=== PATIENT | female | born 1985 | race Caucasian/White ===

== ENCOUNTER 2017-01-06 06:20 | Inpatient (IN) | payer OTHER ==
--- NOTE | 2016-12-30 12:05 | HP ---
Admitting History and Physical - Primary Care Physician PCP: Kd Hartman - Admission Chief Complaint: BRCA 1 positive History of Present Illness: 31 year old premenapausal Ashkenazi female with strong family H/O breast and ovarian cancer. BRCA1 positive. She underwent a reduction mammoplasty 02/2016 in preparation for nipple sparing mastectomies. mammogram Birad 1 09/2016 and breast MRI 10/2016 birad 2. History Source: Patient Limitations to Obtaining History: No Limitations - Past Medical History BUSINESS INTELLIGENCE MANAGER: Yes: Other Gastrointestinal: Yes: Esophageal Varices Rheumatology: Yes: Other (Lyme disease joint pains and on antibiotics since 2014 ) ENT: Yes: Other (seasonal allergies) Endocrine: Yes: Hypothyroidism - Smoking History Smoking history: Never smoked Have you smoked in the past 12 months: No - Alcohol/Substance Use Hx Alcohol Use: No Home Medications - Allergies Allergies/Adverse Reactions: Allergies Allergy/AdvReac Type Severity Reaction Status Date / Time No Known Allergies Allergy Verified 12/30/16 12:04 - Home Medications Home Medications (free text): montelukast,fluconazole,tetracycline,levothyroxine Family Disease History - Family Disease History Family Disease History: CA: Grandparent (mat GM ovarian ca 50), Father ( prostate ca 57), Mother (29 and 40 BRCA positive) Physical Examination Constitutional: Yes: Well Nourished, No Distress Breast(s): Yes: Other (Bilateral reduction mammoplasty incisions healed well with good cosmetic results/ no palpable masses or adenopathy) Problem List - Problems (1) Genetic predisposition to breast cancer Code(s): Z15.01 - GENETIC SUSCEPTIBILITY TO MALIGNANT NEOPLASM OF BREAST Assessment/Plan Bilateral total mastectomies nipple sparing with implant alloderm reconstruction
[2016-12-30 16:32] VITALS: BMI 27.4
[2017-01-06] MEDS ORDERED: LIDOCAINE 1%-EPI 1:100,000 30 ML MDV IJ ONE (06:58)
[2017-01-06] MEDS ORDERED: ceFAZolin SODIUM 1 GM VIAL ONE ×3 (06:58→12:20)
[2017-01-06] MEDS ORDERED: GENTAMICIN SO4 80 MG/2 ML VIAL ONE (06:58)
[2017-01-06] MEDS ORDERED: BUPIVACAINE HCL/PF 2.5 MG/ML - 30 ML VIAL IJ ONE (07:28)
[2017-01-06] MEDS ORDERED: PROPOFOL 20 ML ONE ×2 (07:29)
[2017-01-06] MEDS ORDERED: MIDAZOLAM HCL 2 MG/2 ML SINGLE DOSE VIAL ONE ×2 (07:29→07:47)
[2017-01-06] MEDS ORDERED: SUCCINYLCHOLINE CHLORIDE 200 MG/10 ML VIAL ONE (07:29)
[2017-01-06] MEDS ORDERED: DEXAMETHASONE SOD PHOSPHATE/PF 10 MG/ML SDV ONE (07:31)
[2017-01-06] MEDS ORDERED: HYDROmorphone HCL/PF 1 MG/ML VIAL (FOR PYXIS CHARGING ONLY) ONE ×4 (08:22→12:18)
[2017-01-06] MEDS ORDERED: DEXAMETHASONE SOD PHOSPHATE 4 MG/1 ML VIAL ONE ×3 (08:24→12:18)
[2017-01-06] MEDS ORDERED: ONDANSETRON 4 MG/2 ML VIAL ONE ×2 (08:24→12:18)
[2017-01-06] MEDS ORDERED: PHENYLEPHRINE HCL 10 MG/1 ML SINGLE DOSE VIAL ONE ×2 (08:39)
[2017-01-06] MEDS ORDERED: ROCURONIUM BROMIDE 50 MG/5 ML VIAL ONE (09:02)
[2017-01-06] MEDS ORDERED: SCOPOLAMINE HYDROBROMIDE 1 PATCH PATCH.TD72 ONE (09:06)
[2017-01-06] MEDS ORDERED: ACETAMINOPHEN 325 MG TABLET (FP) PO PRN (09:47)
[2017-01-06] MEDS ORDERED: DESFLURANE GAS 240 ML BOTTLE IH ONE (09:56)
[2017-01-06] MEDS ORDERED: BACITRACIN 50,000 UNITS VIAL NR ONE (10:15)
[2017-01-06] MEDS ORDERED: ceFAZolin SODIUM 1 GM VIAL IVPB ONE (10:16)
[2017-01-06] MEDS ORDERED: GENTAMICIN SO4 80 MG/2 ML VIAL IVPB ONE (10:17)
[2017-01-06] MEDS ORDERED: ZOLPIDEM TARTRATE 5 MG TABLET PO PRN (10:37)
[2017-01-06] MEDS ORDERED: NEOSTIGMINE METHYLSULFATE 0.5 MG/ML - 10 ML MDV ONE (10:50)
[2017-01-06] MEDS ORDERED: GLYCOPYRROLATE 0.2 MG/1 ML VIAL ONE (10:50)
[2017-01-06] MEDS ORDERED: HYDROmorphone *PCA* 10MG/50ML DISP.SYRIN PCA ONE (11:04)
[2017-01-06] MEDS ORDERED: LACTATED RINGERS SOLUTION 1,000 ML IV SCH (11:15)
[2017-01-06] MEDS ORDERED: HYDROmorphone *PCA* 10MG/50ML DISP.SYRIN PCA SCH ×2 (11:15→11:32)
[2017-01-06] MEDS ORDERED: LIDOCAINE HCL 2% 100 MG/5 ML DISP.SYRIN ONE (12:10)
[2017-01-06] MEDS: CEFAZOLIN 1 GM/D5W 50 ML IVPB SCH ×2 (15:23→20:32)
[2017-01-06] MEDS: MONTELUKAST NA 10 MG TABLET PO SCH (21:32)
[2017-01-06] MEDS: ONDANSETRON 4 MG/2 ML VIAL IVPB PRN (23:00)
[2017-01-07] MEDS: CEFAZOLIN 1 GM/D5W 50 ML IVPB SCH ×4 (03:16→21:23)
[2017-01-07] MEDS: ONDANSETRON 4 MG/2 ML VIAL IVPB PRN (04:05)
[2017-01-07] MEDS: LEVOTHYROXINE NA 88 MCG TABLET (FP) PO SCH (06:09)
[2017-01-07 08:59] LABS: MCH 31.2 pg (25.7-33.7); MCHC 33.5 g/dl (32.0-36.0); MEAN CELL VOLUME 93.1 fl (80-96); MEAN PLT VOLUME 9.6 fl (7.5-11.1); PLATELET COUNT 244 K/MM3 (134-434); RDW 11.6 % (11.6-15.6); WHITE BLOOD COUNT 12.8 K/mm3 (4.0-10.0)
--- NOTE | 2017-01-07 09:34 | PN ---
Progress Note, Physician Chief Complaint: BRCA positive S/P bilateral total nipple sparing mastectomies with implant and alloderm reconstruction History of Present Illness: Patient is nauseous and using zofran not using CRYSTAL FLAT GRINDER due to nausea. Will change to percocet once she is able to eat - Current Medication List Current Medications: Active Medications Acetaminophen (Tylenol -) 650 mg PO Q4H PRN PRN Reason: FEVER Hydromorphone HCl (Dilaudid Ct Tech -) 10 mg CRYSTAL FLAT GRINDER CRYSTAL FLAT GRINDER LUCIO PRN Reason: Protocol Stop: 01/13/17 11:05 Cefazolin Sodium (Ancef 1 Gm Premixed Ivpb -) 50 mls @ 100 mls/hr IVPB Q6H-IV [facility] Stop: 01/13/17 14:59 Last Admin: 01/07/17 03:16 Dose: 100 mls/hr Dextrose/Sodium Chloride (D5-1/2ns -) 1,000 mls @ 100 mls/hr IV ASDIR [facility] Lactated Ringer's (Lactated Ringers Solution) 1,000 mls @ 125 mls/hr IV ASDIR [facility] Levothyroxine Sodium (Synthroid -) 88 mcg PO DAILY@0700 [facility] Last Admin: 01/07/17 06:09 Dose: 88 mcg Loratadine (Claritin -) 10 mg PO DAILY [facility] Montelukast Sodium (Singulair -) 10 mg PO HS [facility] Last Admin: 01/06/17 21:32 Dose: 10 mg Ondansetron HCl (Zofran Injection) 4 mg IVPB Q6H PRN PRN Reason: NAUSEA AND/OR VOMITING Last Admin: 01/07/17 04:05 Dose: 4 mg Zolpidem Tartrate (Ambien -) 5 mg PO HS PRN PRN Reason: Insomnia - Objective Vital Signs: Vital Signs Temperature 98.4 F 01/07/17 06:05 Pulse Rate 81 01/07/17 06:05 Respiratory Rate 18 01/07/17 08:21 Blood Pressure 103/46 01/07/17 06:05 O2 Sat by Pulse Oximetry (%) 99 01/07/17 08:21 Constitutional: Yes: Well Nourished, No Distress Breast(s): Yes: Other (Bilateral echymosis mild flaps viable incision intact and tegaderm in place FIDEL drains functioning) Labs: CBC, BMP 01/07/17 07:55 Problem List - Problems (1) Genetic predisposition to breast cancer Code(s): Z15.01 - GENETIC SUSCEPTIBILITY TO MALIGNANT NEOPLASM OF BREAST Assessment/Plan continue IV antibiotics DC CRYSTAL FLAT GRINDER and start percocet once she is tolerating po better spirometry plan for discharge tomorrow
[2017-01-07] MEDS: LORATADINE 10 MG TABLET PO SCH (09:51)
--- NOTE | 2017-01-07 10:16 | PN ---
Progress Note, Physician Chief Complaint: POD # s/p bilateral mastectomies with direct implant placement with alloderm History of Present Illness: POD # s/p bilateral mastectomies with direct implant placement with alloderm - Current Medication List Current Medications: Active Medications Acetaminophen (Tylenol -) 650 mg PO Q4H PRN PRN Reason: FEVER Hydromorphone HCl (Dilaudid Speech Assistant -) 10 mg SUPERVISOR CONTINGENTS SUPERVISOR CONTINGENTS LUCIO PRN Reason: Protocol Stop: 01/13/17 11:05 Cefazolin Sodium (Ancef 1 Gm Premixed Ivpb -) 50 mls @ 100 mls/hr IVPB Q6H-IV [facility] Stop: 01/13/17 14:59 Last Admin: 01/07/17 09:51 Dose: 100 mls/hr Dextrose/Sodium Chloride (D5-1/2ns -) 1,000 mls @ 100 mls/hr IV ASDIR [facility] Lactated Ringer's (Lactated Ringers Solution) 1,000 mls @ 125 mls/hr IV ASDIR [facility] Levothyroxine Sodium (Synthroid -) 88 mcg PO DAILY@0700 [facility] Last Admin: 01/07/17 06:09 Dose: 88 mcg Loratadine (Claritin -) 10 mg PO DAILY [facility] Last Admin: 01/07/17 09:51 Dose: 10 mg Montelukast Sodium (Singulair -) 10 mg PO HS [facility] Last Admin: 01/06/17 21:32 Dose: 10 mg Ondansetron HCl (Zofran Injection) 4 mg IVPB Q6H PRN PRN Reason: NAUSEA AND/OR VOMITING Last Admin: 01/07/17 04:05 Dose: 4 mg Zolpidem Tartrate (Ambien -) 5 mg PO HS PRN PRN Reason: Insomnia - Objective Vital Signs: Vital Signs Temperature 98.6 F 01/07/17 09:46 Pulse Rate 67 01/07/17 09:46 Respiratory Rate 18 01/07/17 09:46 Blood Pressure 127/82 01/07/17 09:46 O2 Sat by Pulse Oximetry (%) 99 01/07/17 08:21 Constitutional: Yes: Well Nourished Eyes: Yes: WNL HENT: Yes: WNL Neck: Yes: WNL Respiratory: Yes: WNL Gastrointestinal: Yes: WNL ...Rectal Exam: Yes: Deferred Breast(s): Yes: Other (Bilateral breasts with appropriate swelling and tegaderm dressings in place. Nipples viable. No drainage.) Wound/Incision: Yes: Clean/Dry Additional Findings/Remarks: Cont with pain management cont with beir hugger cont with abx cont with anticoagulation possible d/c tomorrow Labs: CBC, BMP 01/07/17 07:55
--- NOTE | 2017-01-07 11:54 | OP ---
DATE OF OPERATION: 01/06/2017 PREOPERATIVE DIAGNOSIS: High risk for breast cancer BRCA1 positive. POSTOPERATIVE DIAGNOSIS: High risk for breast cancer BRCA1 positive. PROCEDURE: Bilateral total nipple-sparing mastectomy, pseudo inframammary approach, with bilateral direct implant reconstruction with AlloDerm. ANESTHESIA: General endotracheal anesthesia. PRIMARY SURGEON: Aaliyah Drew MD PUBLIC HEALTH INTERNSHIP: SHANIQUA Champagne PRIMARY SURGEON FOR THE BILATERAL DIRECT IMPLANT RECONSTRUCTION: Aaliyah Lindo MD HIS PUBLIC HEALTH INTERNSHIP: SHANIQUA Ludwig COMPLICATIONS: There were no complications. INDICATIONS: Briefly, the patient is a 31-year-old premenopausal white female of [place] descent and Ashkenazi Scientologist heritage. She has a strong family history of breast cancer with a mother who had breast cancer at age 29 and then again at age 40, who tested BRCA1 positive. Her maternal grandmother from ovarian cancer at age 50. Her father had prostate cancer at age 57. The patient tested BRCA1 positive in 2004 and had been getting close surveillance. She decided to undergo bilateral breast reduction mastectomies and had fairly large breasts and first underwent a reduction mastopexy in February of 2016. She had a negative mammography and ultrasound in September and October of 2016, and negative MRI in October of 2016. She was seen in consultation regarding breast reduction, prophylactic mastectomy and understood that we do retroareolar biopsies underneath the nipple. If these show cancer, we would remove the nipples. She understood the lack of any evidence shown for doing prophylactic sentinel lymph node biopsy. She understood all risks and complications of the procedure including the risks of skin flap necrosis, nipple loss, hematoma, infection. The patient was brought in for the surgery on January 06, 2017. In the holding area, site verification was made and informed consent was obtained. She was marked preoperatively by the plastic surgeon. She did sign consent for the Nipple-Sparing Registry. DESCRIPTION OF PROCEDURE: She underwent the pectoral block bilaterally for postoperative pain control and then was brought into the operating room. In the operating room, Venodynes were placed on the lower extremities prior to induction. She received 2 g of Ancef prior to incision. She underwent general endotracheal anesthesia. Both breasts were sterilely prepped and draped in the usual fashion. Bilateral inframammary incisions were marked using the previous reduction pattern incision on the inframammary fold. The left mastectomy was first performed. An incision was made using the previous inframammary incision from her mastopexy, and skin flaps were raised using the PEAK radiofrequency device. The breast was retracted inferiorly using [place] clamps, and the flap was raised superiorly to the level of the clavicle, medially to the level of the sternum, laterally to the level of the latissimus, and inferiorly below the level of the inframammary fold. The breast was taken down off the pectoralis major muscle from inferomedial to superolateral, completely removed intact. It was oriented with the long-lateral short-superior suture, and weighed to allow for appropriate cosmetic result. Skin flaps were trimmed for good cosmetic result, and hemostasis was achieved. A retroareolar biopsy was taken underneath the left nipple areolar complex and sent for frozen section. It came back negative, so, the left nipple was spared. The wound was copiously irrigated with warm sterile saline. At this point, the right breast was approached and again, the previous inframammary incision was used, and the skin flap was raised using the PEAK radiofrequency device superiorly to the level of the clavicle, medially to the level of the sternum, laterally to the level of the latissimus, and inferiorly below the level of the inframammary fold. Again, the breast was taken down off the pectoralis major muscle from inferomedial to superolateral, completely removed intact, and it was oriented with the long-lateral short-superior suture, and weighed to allow for appropriate cosmetic result. A retroareolar biopsy was taken underneath the right nipple areolar complex and sent for frozen section. It came back negative, so, the right nipple was spared. Both breasts were sent to Pathology in formalin with marking sutures, and the right mastectomy wound was copiously irrigated with warm sterile saline, and hemostasis was achieved. Again the retroareolar biopsy on the right was negative, as well. At this point, Dr. Lindo became the primary surgeon and performed bilateral direct implant reconstructions using AlloDerm sutured into the inferolateral aspects of both pectoralis major muscles. Implants were placed subpectorally. Two Barrett drains will be placed around each implant and brought through separate stab incisions on the lateral skin flaps. All wounds will be closed by plastic surgery. Drains will be placed under FIDEL sterile bulb suction. Sterile dressing will be applied, and she will be extubated and brought to the post-anesthesia care until. Then, she will be admitted postoperatively for pain management and wound management. She will be placed on a CERTIFIED OPHTHALMIC SURGICAL ASSISTANT for postoperative pain control. All sponge and needle counts were correct at this point in the case. ESTIMATED BLOOD LOSS: About 100 mL. CONDITION: She was hemodynamically stable throughout. NOTE: We did use the SPY Skin Perfusion Device at the end of the mastectomy which showed good perfusion of both flaps prior in the nipple areolar complexes. AALIYAH DREW M.D. [id number]
--- NOTE | 2017-01-07 14:44 | PN ---
Progress Note (short form) - Note Progress Note: ANESTHESIA POST-OP CHECK 31F s/p bilateral mastectomy under general anesthesia POD #1. No acute complaints. Tolerating PO, ambulating, voiding, pain 4/10 and tolerable. Denies N/V. Vital Signs Temperature 98.6 F 01/07/17 09:46 Pulse Rate 67 01/07/17 09:46 Respiratory Rate 18 01/07/17 09:46 Blood Pressure 127/82 01/07/17 09:46 O2 Sat by Pulse Oximetry (%) 99 01/07/17 08:21 Active Medications Acetaminophen (Tylenol -) 650 mg PO Q4H PRN PRN Reason: FEVER Hydromorphone HCl (Dilaudid Equity Trader -) 10 mg PATIENT TRANSITION SPECIALIST PATIENT TRANSITION SPECIALIST LUCIO PRN Reason: Protocol Stop: 01/13/17 11:05 Cefazolin Sodium (Ancef 1 Gm Premixed Ivpb -) 50 mls @ 100 mls/hr IVPB Q6H-IV [facility] Stop: 01/13/17 14:59 Last Admin: 01/07/17 09:51 Dose: 100 mls/hr Dextrose/Sodium Chloride (D5-1/2ns -) 1,000 mls @ 100 mls/hr IV ASDIR LUCIO Lactated Ringer's (Lactated Ringers Solution) 1,000 mls @ 125 mls/hr IV ASDIR LUCIO Levothyroxine Sodium (Synthroid -) 88 mcg PO DAILY@0700 [facility] Last Admin: 01/07/17 06:09 Dose: 88 mcg Loratadine (Claritin -) 10 mg PO DAILY [facility] Last Admin: 01/07/17 09:51 Dose: 10 mg Montelukast Sodium (Singulair -) 10 mg PO HS [facility] Last Admin: 01/06/17 21:32 Dose: 10 mg Ondansetron HCl (Zofran Injection) 4 mg IVPB Q6H PRN PRN Reason: NAUSEA AND/OR VOMITING Last Admin: 01/07/17 04:05 Dose: 4 mg Zolpidem Tartrate (Ambien -) 5 mg PO HS PRN PRN Reason: Insomnia Gen: awake alert No apparent anesthesia complications. Pain well controlled, discontinue PATIENT TRANSITION SPECIALIST, start oral analgesics. Continue managment as per primary team.
[2017-01-07] MEDS: DEXTROSE 5%-0.45% SALINE 1,000 ML IV SCH (15:33)
[2017-01-07] MEDS: OXYCODONE/APAP 5/325MG COMBO TABLET PO PRN (18:12)
[2017-01-07] MEDS: MONTELUKAST NA 10 MG TABLET PO SCH (21:23)
[2017-01-07] MEDS ORDERED: diphenhydrAMINE HCL 25 MG CAPSULE (FP) PO PRN (22:48)
[2017-01-08] MEDS: CEFAZOLIN 1 GM/D5W 50 ML IVPB SCH ×2 (03:06→09:37)
[2017-01-08] MEDS: OXYCODONE/APAP 5/325MG COMBO TABLET PO PRN (03:07)
[2017-01-08 03:20] VITALS: BP 108/56; PULSE 82; TEMP 98.3
--- NOTE | 2017-01-08 06:11 | OP ---
DATE OF OPERATION: DATE OF DICTATION: 01/07/2017 PREOPERATIVE DIAGNOSES: 1. Bilateral acquired chest wall deformity status post bilateral mastectomy (611.89). 2. Personal history of genetic carcinoma. POSTOPERATIVE DIAGNOSES: 1. Bilateral acquired chest wall deformity status post bilateral mastectomy (611.89). 2. Personal history of genetic carcinoma. PROCEDURE: 1. Right immediate breast reconstruction utilizing immediate insertion of silicone breast implant and AlloDerm reconstruction. 2. Left immediate breast reconstruction utilizing immediate insertion of silicone breast implant and AlloDerm reconstruction. 3. Intravenous injection of isocyanide green dye and intraoperative diagnostic evaluation of noncoronary intraoperative fluorescein vascular angiography x 2. SURGEON: Dr. Miguelina Lindo ANESTHESIA: General. OPERATIVE PROCEDURE IN DETAIL: The patient was brought to the operating room by Dr. Aaliyah Hartman. She underwent bilateral breast reconstruction in the usual fashion. After induction of general anesthesia in the supine position, both arms were extended and padded. Venodyne boots were placed. The entire chest wall was painted with ChloraPrep solution over its entire extent, and sterile drapes were placed in the usual fashion. The markings, which had been made in the standing position preoperatively, were reoutlined with the patient's knowledge. Timeout procedure was performed. Attention was turned by Dr. Hartman to the mastectomies. Bilateral inframammary incisions were made and Dr. Hartman performed mastectomies. This will be dictated under separate cover. Upon completion of the mastectomies, the wounds were copiously irrigated and attention was turned to the right breast. A subpectoral dissection was begun on the right breast, superiorly from the second rib, medially to the sternal fibers, and down to the inframammary fold, elevating the pectoralis major muscle from its insertion. At this point, an 8.0 x 16.0 sheet of AlloDerm Contour perforated medium was brought into the field and sutured superiorly along the pectoralis major muscle after rehydration. This was carried along the lateral mammary fold and down the side of the breast reconstruction. At this point, a Natrelle Inspira cohesive breast implant style SCF 485 mL was chosen. The left breast tissue removed was 370 g, and the right breast approximately 370 g. This implant was placed and then sutured with 3-0 Vicryl suture continued along the inframammary fold, completely covering the implant itself. The exact same procedure was carried out symmetrically on the opposite breast, also placing a Natrelle Inspira cohesive breast implant style SCF 485 mL implant in the same subpectoral pocket. Good symmetry was seen in the sitting position. After the implants were in place, the patient was injected with 10 mL of isocyanide green dye and the Spy imaging system was brought into the field. The skin flowed to the right and left breasts and the nipple areolar complex, and the entire skin flaps were evaluated and seen to be viable with good blood flow. Two Fercho-Nelson drains were brought out through separate stab wounds laterally. The Smart Infuser pump catheter was inserted medially and into the subpectoral position. Both wounds were closed symmetrically using 3-0 PDS suture on the deep tissue, 3-0 in a deep dermal fashion, and 4-0 in a subcuticular fashion. Both wounds were dressed sterilely with Mastisol and Steri-Strips with a surgical bra and a compression strap. The patient tolerated the procedure well. She was awakened, extubated and transferred to the recovery room in satisfactory condition. The preschool assistant principal was present during the entire portion of the operation and closure. AALIYAH LINDO M.D. [id number]
[2017-01-08] MEDS: LEVOTHYROXINE NA 88 MCG TABLET (FP) PO SCH (07:29)
[2017-01-08] MEDS: DEXTROSE 5%-0.45% SALINE 1,000 ML IV SCH (09:37)
[2017-01-08] MEDS: LORATADINE 10 MG TABLET PO SCH (09:37)
--- NOTE | 2017-01-08 10:43 | PN ---
Progress Note, Physician Chief Complaint: High risk for breast cancer BRCA1+ History of Present Illness: The patient is a 31 y.o premenopausal white female with a strong family history of breast and ovarian cancer who tested BRCA1+. She decided on undergoing a prophylactic nipple sparing mastectomy. She had a reduction mastopexy in 2015 and underwent the prophylactic NSM on 01/06/17. She was admitted postoperatively for pain and wound management. - Current Medication List Current Medications: Active Medications Acetaminophen (Tylenol -) 650 mg PO Q4H PRN PRN Reason: FEVER Diphenhydramine HCl (Benadryl -) 25 mg PO Q6H PRN Last Admin: 01/08/17 03:06 Dose: 25 mg Cefazolin Sodium (Ancef 1 Gm Premixed Ivpb -) 50 mls @ 100 mls/hr IVPB Q6H-IV [facility] Stop: 01/13/17 14:59 Last Admin: 01/08/17 09:37 Dose: 100 mls/hr Dextrose/Sodium Chloride (D5-1/2ns -) 1,000 mls @ 100 mls/hr IV ASDIR [facility] Last Admin: 01/08/17 09:37 Dose: Not Given Lactated Ringer's (Lactated Ringers Solution) 1,000 mls @ 125 mls/hr IV ASDIR [facility] Last Admin: 01/07/17 15:33 Dose: Not Given Levothyroxine Sodium (Synthroid -) 88 mcg PO DAILY@0700 [facility] Last Admin: 01/08/17 07:29 Dose: 88 mcg Loratadine (Claritin -) 10 mg PO DAILY [facility] Last Admin: 01/08/17 09:37 Dose: 10 mg Montelukast Sodium (Singulair -) 10 mg PO HS [facility] Last Admin: 01/07/17 21:23 Dose: 10 mg Ondansetron HCl (Zofran Injection) 4 mg IVPB Q6H PRN PRN Reason: NAUSEA AND/OR VOMITING Last Admin: 01/07/17 04:05 Dose: 4 mg Oxycodone/Acetaminophen (Percocet 5/325 -) 2 combo PO Q6H PRN PRN Reason: PAIN LEVEL 6-10 Last Admin: 01/08/17 03:07 Dose: 2 combo Zolpidem Tartrate (Ambien -) 5 mg PO HS PRN PRN Reason: Insomnia - Objective Vital Signs: Vital Signs Temperature 98.3 F 01/08/17 03:00 Pulse Rate 82 01/08/17 03:00 Respiratory Rate 20 01/08/17 03:00 Blood Pressure 108/56 01/08/17 03:00 O2 Sat by Pulse Oximetry (%) 98 01/07/17 20:33 Constitutional: Yes: Well Nourished, No Distress, Calm Eyes: Yes: WNL HENT: Yes: WNL Neck: Yes: WNL Cardiovascular: Yes: Regular Rate and Rhythm Respiratory: Yes: Regular, CTA Bilaterally Gastrointestinal: Yes: Normal Bowel Sounds, Soft ...Rectal Exam: Yes: Deferred Genitourinary: Yes: WNL Breast(s): Yes: Other (Wounds clean dry and intact. Skin flaps warma and viable. Drains functioning well) Musculoskeletal: Yes: WNL Extremities: Yes: WNL Integumentary: Yes: WNL Wound/Incision: Yes: Clean/Dry, Well Approximated Neurological: Yes: Alert, Oriented ...Motor Strength: WNL Psychiatric: Yes: WNL Labs: CBC, BMP 01/07/17 07:55 Problem List - Problems (1) Genetic predisposition to breast cancer Assessment/Plan: The patient is doing well POD#2 from her bilateral prophylactic nipple sparing mastectomies. She has good pain control but is pruritic on percocet. Skin flaps are warm and viable. Dressing changed at bedside today. She is stable for discharge. Will send home on vicodin for pain and cefadroxil antibiotics. Follow up with Drs. Hartman and Guicho in 1 week. Record drain outputs daily. No heavy lifting or exercise. No bath or shower until drains removed. Code(s): Z15.01 - GENETIC SUSCEPTIBILITY TO MALIGNANT NEOPLASM OF BREAST
--- NOTE | 2017-01-08 11:02 | DS ---
Physical Examination Vital Signs: Vital Signs Temperature 98.3 F 01/08/17 03:00 Pulse Rate 82 01/08/17 03:00 Respiratory Rate 20 01/08/17 03:00 Blood Pressure 108/56 01/08/17 03:00 O2 Sat by Pulse Oximetry (%) 98 01/07/17 20:33 Constitutional: Yes: Well Nourished, No Distress, Calm Eyes: Yes: WNL HENT: Yes: Hoarseness Neck: Yes: WNL Cardiovascular: Yes: Regular Rate and Rhythm Respiratory: Yes: Regular, CTA Bilaterally Gastrointestinal: Yes: Normal Bowel Sounds, Soft ...Rectal Exam: Yes: Deferred Renal/: Yes: WNL Breast(s): Yes: Other (Wounds clean, dry, and intact. Skin flaps warm and viable. 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 She did well postoperatively and her skin flaps were warm and viable and wounds clean and dry. 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 Condition: Good - Instructions Diet, Activity, Other Instructions: Post Operative Instructions - [facility] We hope your recovery will be uneventful. For those of you who have been given general anesthesia, there is a possibility you might have some lightheadedness and possibly nausea. It is important that each patient, especially those who have had general anesthesia, follow these instructions, please: 1. Do NOT operate a motor vehicle for 24 hours. 2. Do NOT drink any alcoholic beverages for 24 hours. 3. Do NOT take any sedatives, narcotics, or tranquilizers for 24 hours unless specifically ordered by your surgeon. 4. Do NOT undertake any strenuous exercise or outside activity for 24 hours unless specifically permitted by your surgeon. 5. Eat light foods that are easy to digest. If you have any problems with nausea and vomiting, lie down and rest. If it continues, call your surgeon. 6. Call your surgeon AT ONCE if you have problems with: a. Bleeding b. Urinating c. Excessive pain or drainage d. Numbness If any problems occur, call your physician first. If you cannot reach him/her, call the Ambulatory Surgery Unit at [phone], or the Emergency Room at [phone]. Follow up with Drs. Hartman / Bk in 7 days. Medication: Vicodin E-S OR Percocet 1-2 tablets every 4-6 hrs as needed for 5-7 days. Wound Care: Keep wound dry and clean for 48 hours. You may remove the dressing after 48 hours and may shower. Keep steri-strips in place until follow-up appointment No heavy lifting or strenuous activities. BREAST SURGERY INSTRUCTIONS Jose Hartman M.D., YONI Hartman M.D., FACS Johnny Bourgeois M.D., FACS 1. Please call the office at to make a follow up appointment with your surgeon. This number can be also used for any urgent issues you may have. 2. Call us immediately if any of the following occur: *Bleeding from the incision or drain site (a small amount is normal) *Fever or chills *Redness and worsening tenderness around the surgical site *Drainage of pus or fluid from the incision or drain site 3. You may change the surgical dressing two (2) days after your surgery, and may shower then. If you have drains, you may shower after they have been removed, until then take a sponge bath. 4. It is normal for there to be some bruising and tenderness around the surgical site, and the breast may also be firm in this area. 5. Please wear a comfortable bra (sports or surgical bra) all day and all night until your first follow-up visit with your surgeon. 6. The pain medicine you have been prescribed may make you constipated; make sure you drink plenty of water. You may use an over the counter laxative if needed. 7. You may resume your normal diet after surgery, although you may want to avoid rich foods for the first twenty-four (24) hours after surgery. Alcoholic drinks should be avoided while taking the prescribed pain medicine. 8. You may resume normal activities as long as there is no discomfort, but do not do upper body exercises until after your follow-up appointment. Do not lift anything heavier than a large phone book. You may resume driving once you have stopped taking the prescribed pain medicine and feel comfortable doing arm movements. WEAR BRA/ NO SHOWER/ EMPTY AND RECORD FIDEL OUTPUT TWICE DAILTY/ CHANGE DRESSING WHEN SOILED Referrals: Kd Hartman MD [Staff Physician] - Remigio Lindo MD [Staff Physician] - Disposition: HOME - Home Medications Comprehensive Discharge Medication List: Ambulatory Orders Cholecalciferol (Vitamin D3) [Vitamin D3 -] 1,000 unit PO DAILY 12/30/16 Levothyroxine [Synthroid -] 88 mcg PO DAILY 12/30/16 Loratadine [Claritin] 10 mg PO DAILY 12/30/16 Montelukast Na [Singulair -] 10 mg PO HS 12/30/16 Multivitamins [Multivit ([facility] Formulary)] 1 tab PO DAILY 12/30/16 Cefadroxil 500 mg PO BID #20 capsule 01/07/17 Oxycodone HCl/Acetaminophen [Percocet 5-325 mg Tablet] 1 - 2 tab PO Q6H PRN #30 tab MDD 6 01/07/17 Hydrocodone/Acetaminophen [Vicodin 5-300 mg Tablet] 1 each PO PRN PRN 7 Days MDD 8 01/08/17
--- NOTE | 2017-01-11 11:26 | PATH ---
Surgical Pathology Report Patient Name: GREGORY FAM Med. Rec. #: [id number] /Age/Gender: 1985 (Age: 31) / F Account: [id number] Location: [facility] Taken: 01/06/2017 Received: 01/06/2017 Reported: 01/11/2017 Physicians: Kd Hartman M.D. Specimen(s) Received A: RIGHT BREAST RETROAREOLAR BX. FS#1 B: LEFT BREAST RETROAREOLAR BIOPSY. FS#2 C: LEFT BREAST MASTECTOMY D: RIGHT BREAST MASTECTOMY Clinical History Bilateral prophylactic mastectomies BRCA + Intraoperative Consult Diagnosis A. Right retroareolar biopsy, frozen section: Negative for malignancy. B. Left retroareolar biopsy, frozen section: Negative for malignancy, Nona Sarah M.D. 01/06/17 Final Diagnosis A. RETROAREOLA, RIGHT BREAST, BIOPSY (FS): BENIGN BREAST TISSUE; NEGATIVE FOR MALIGNANCY. B. RETROAREOLA, LEFT BREAST, BIOPSY (FS): BENIGN BREAST TISSUE; NEGATIVE FOR MALIGNANCY. C. BREAST, LEFT, NIPPLE-SPARING MASTECTOMY: BENIGN BREAST TISSUE. D. BREAST, RIGHT, NIPPLE-SPARING MASTECTOMY: BENIGN BREAST TISSUE. FEW SUTURE GRANULOMAS ARE IDENTIFIED. Electronically Signed Patricia Sarah M.D. Gross Description A. Received fresh for frozen section, labeled "right breast retroareolar biopsy," is a 0.5 x 0.4 x 0.2 cm portion of red and yellow soft tissue. A frozen section is performed on the specimen. The frozen section residue is entirely submitted in one cassette. B. Received fresh for frozen section, labeled "left breast retroareolar biopsy," is a 1.2 x 0.8 x 0.2 cm portion of red and yellow soft tissue. A frozen section is performed on the specimen. The frozen section residue is entirely submitted in one cassette. C. Received in formalin, labeled "left breast mastectomy," is a 384 gram, 15.5 x 15.0 x 3.7 cm. left mastectomy specimen with a short suture marking the superior aspect and a long suture marking the lateral aspect of the specimen, per the surgeon. There is no skin or nipple present. The deep margin is inked black and the anterior soft tissue margin is inked blue. The specimen is serially sectioned from medial to lateral. Sectioning reveals multiple foci of white fibrous tissue. Tape Recording Machine Operator sections are submitted in 14 cassettes as follows: 1-3-upper outer quadrant; 4-6-lower outer quadrant; 7-9-upper inner quadrant; 10-12-lower inner quadrant; 13-anterior soft tissue margin; 14-deep margin. Time to formalin fixation: 14 minutes Total formalin fixation time: Approximately 33 hours. D. Received in formalin, labeled "right breast mastectomy," is a 365 gram, 15.0 x 12.5 x 4.2 cm. right mastectomy specimen with a short suture marking the superior aspect and a long suture marking the lateral aspect of the specimen, per the surgeon. There is no skin or nipple present. The deep margin is inked black and the anterior soft tissue margin is inked blue. The specimen is serially sectioned from lateral to medial. Sectioning reveals multiple foci of white fibrous tissue. Tape Recording Machine Operator sections are submitted in 14 cassettes as follows: 1-3-upper outer quadrant; 4-6-lower outer quadrant; 7-9-upper inner quadrant; 10-12-lower inner quadrant; 13-anterior soft tissue margin; 14-deep margin. Time to formalin fixation: 15 minutes Total formalin fixation time: Approximately 32 hours. 01/07/201701/07/2017
== END 2017-01-08 12:30 | disposition home or self-care (01) | DRG 584 ==
LOC: FM/S 06:20 → EDBD 09:30 → FM/S 13:51
PROVIDERS: ADMIT Surgery Surgical Oncology; ATTEND Surgery Surgical Oncology
PROC: 0HTV0ZZ Resection of Bilateral Breast, Open Approach (ICD-10-PCS; principal; 2017-01-07)
PROC: 0HRV0JZ Replacement of Bilateral Breast with Synthetic Substitute, Open Approach (ICD-10-PCS; 2017-01-07)
DX: Z40.01 Encounter for prophylactic removal of breast (principal); I85.00 Esophageal varices without bleeding; M95.4 Acquired deformity of chest and rib; E03.9 Hypothyroidism, unspecified; Z80.3 Family history of malignant neoplasm of breast; Z80.41 Family history of malignant neoplasm of ovary; Z15.01 Genetic susceptibility to malignant neoplasm of breast
CPT/HCPCS: 36415; 84703; 85027; 88307-TC; 88331-TC; 94010; 94760